=== PATIENT | female | born 1950 | race Asian ===

== ENCOUNTER 2017-09-22 06:35 | Inpatient (IN) | payer BC ==
[2017-09-22] MEDS: CEFAZOLIN 2 GM/50 ML (PMX) 50 ML IVPB (06:00)
[2017-09-22] MEDS: TRANEXAMIC ACID 1,000 MG in NS 100 ML PRE-OP X1 IVPB (06:00)
[2017-09-22] MEDS: TRANEXAMIC ACID 1,000 MG in NS 100 ML INTRA-OP X1 IVPB (06:00)
[2017-09-22] MEDS ORDERED: ROCURONIUM 50 MG INJ (07:00)
[2017-09-22] MEDS ORDERED: PROPOFOL 20 ML (08:34)
[2017-09-22] MEDS ORDERED: MIDAZOLAM 1 MG/ML 2 ML INJ (08:34)
[2017-09-22] MEDS ORDERED: ROPIVACAINE 0.5 % 30 ML VIAL (08:34)
[2017-09-22] MEDS ORDERED: METOCLOPRAMIDE 10 MG INJ (08:34)
[2017-09-22] MEDS ORDERED: ONDANSETRON 4 MG INJ (08:34)
[2017-09-22] MEDS ORDERED: LIDOCAINE 2% (SDV) 5 ML INJ (08:34)
[2017-09-22] MEDS ORDERED: BUPIVACAINE 0.75%/DEXT (SPINAL) 2 ML INJ (09:10)
[2017-09-22] MEDS ORDERED: CEFAZOLIN 1 GM INJ (09:12)
[2017-09-22] MEDS ORDERED: NALOXONE (0.4 MG/ML) INJ IV (10:00)
[2017-09-22] MEDS ORDERED: NA PHOSPHATE/BIPHOS 133 ML ENEMA PR (10:00)
[2017-09-22] MEDS ORDERED: BISACODYL 10 MG SUPP PR (10:00)
[2017-09-22] MEDS ORDERED: DIPHENHYDRAMINE 50 MG INJ IV ×2 (10:00→12:30)
[2017-09-22] MEDS ORDERED: BETHANECHOL 25 MG TAB PO (10:00)
[2017-09-22] MEDS ORDERED: oxyCODONE 5 MG TAB PO ×2 (10:00)
[2017-09-22] MEDS ORDERED: hydrALAzine 20 MG INJ (10:17)
[2017-09-22] MEDS ORDERED: MEPERIDINE 100 MG INJ (10:18)
[2017-09-22] MEDS: POLYMYXIN B 500000 UNIT INJ (11:32)
[2017-09-22] MEDS: BACITRACIN 50000 UNITS INJ (11:32)
[2017-09-22] MEDS: ONDANSETRON 4 MG INJ IV ×3 (12:27→21:23)
[2017-09-22] MEDS: ASPIRIN (EC) 325 MG TAB PO (12:27)
[2017-09-22] MEDS: CEFAZOLIN 1 GM/50 ML (PMX) 50 ML IVPB ×2 (12:27→17:29)
[2017-09-22] MEDS: DOCUSATE SODIUM 100 MG CAP PO (12:27)
[2017-09-22] MEDS ORDERED: HYDROmorphONE 1 MG/5 ML IV SYRINGE IV ×3 (12:30)
[2017-09-22] MEDS ORDERED: MIDAZOLAM 1 MG/ML 2 ML INJ IV (12:30)
[2017-09-22] MEDS ORDERED: OXYCODONE/ACETAMINOPHEN (5/325) TAB PO ×2 (12:30)
[2017-09-22] MEDS ORDERED: LABETALOL HCL 20MG INJ IV (12:30)
[2017-09-22] MEDS ORDERED: FENTAnyl 50 MCG/ML VIAL IV ×3 (12:30)
[2017-09-22] MEDS ORDERED: EPHEDrine SULFATE 50 MG/5 ML SYG IV (12:30)
[2017-09-22] MEDS ORDERED: ONDANSETRON 4 MG INJ IV (12:30)
[2017-09-22] MEDS ORDERED: MEPERIDINE 25 MG INJ IV (12:30)
[2017-09-22] MEDS ORDERED: hydrALAzine 20 MG INJ IV (12:30)
[2017-09-22] MEDS ORDERED: METOCLOPRAMIDE 10 MG INJ IV (12:30)
[2017-09-22] MEDS: LACTATED RINGER'S 1,000 ML IV* (12:50)
[2017-09-22] MEDS: SOD CHLORIDE 0.9% 1,000 ML IV ×2 (14:46→22:16)
[2017-09-22] MEDS: KETOROLAC 15 MG INJ IV (18:01)
[2017-09-22] MEDS: oxyCODONE 5 MG TAB PO (20:45)
[2017-09-22] MEDS: ATORVASTATIN 40 MG TAB PO (21:22)
[2017-09-22] MEDS: GABAPENTIN 100 MG CAP PO (21:22)
[2017-09-22] MEDS: CELECOXIB 100 MG CAP PO (21:33)
[2017-09-23] MEDS: CEFAZOLIN 1 GM/50 ML (PMX) 50 ML IVPB (02:01)
[2017-09-23] MEDS: KETOROLAC 15 MG INJ IV (02:07)
[2017-09-23] MEDS: SOD CHLORIDE 0.9% 1,000 ML IV ×2 (02:08→22:34)
[2017-09-23] MEDS: ONDANSETRON 4 MG INJ IV (04:00)
[2017-09-23 05:06] LABS: ADD MAN DIFF? NO; BASOPHILS % 0.2 % (0.0-2.0); EOSINOPHILS % 0.4 % (0.0-7.0); HEMATOCRIT 33.1 % (37.0-47.0); HEMOGLOBIN 10.8 g/dl (12.0-16.0); LYMPHOCYTES # 2.2 10^3/ul (0.8-2.9); LYMPHOCYTES % 24.4 % (15.0-51.0); MEAN CORPUSCULAR HEMOGLOBIN 28.9 pg (29.0-33.0); MEAN CORPUSCULAR HGB CONC 32.6 g/dl (32.0-37.0); MEAN CORPUSCULAR VOLUME 88.5 fl (82.0-101.0); MEAN PLATELET VOLUME 9.1 fl (7.4-10.4); MONOCYTE # 0.8 10^3/ul (0.3-0.9); MONOCYTES % 8.7 % (0.0-11.0); NEUTROPHIL # 5.9 10^3/ul (1.6-7.5); NEUTROPHILS % 65.7 % (39.0-77.0); PLATELET COUNT 263 10^3/UL (140-415); RED BLOOD COUNT 3.74 10^6/ul (4.20-5.40); RED CELL DISTRIBUTION WIDTH 13.8 % (11.5-14.5)
[2017-09-23 05:29] LABS: HEMOGLOBIN A1C 5.8 % (0-5.9)
[2017-09-23 05:36] LABS: CHOL/HDL RATIO 4.1 RATIO; CHOLESTEROL 111 mg/dl (100-200); HDL CHOLESTEROL 27 mg/dl (35-98); LDL CHOLESTEROL,CALCULATED 69 mg/dl; TRIGLYCERIDES 73 mg/dl (0-149)
[2017-09-23 05:36] LABS: URIC ACID 7.6 mg/dl (3.1-7.9)
[2017-09-23 05:47] LABS: ALANINE AMINOTRANSFERASE 28 IU/L (13-69); ALBUMIN 2.9 g/dl (3.3-4.9); ALKALINE PHOSPHATASE 56 IU/L (42-121); ASPARTATE AMINO TRANSFERASE 25 IU/L (15-46); BILIRUBIN,INDIRECT 0.4 mg/dl (0-1.1); BILIRUBIN,TOTAL 0.4 mg/dl (0.2-1.3); MAGNESIUM 1.9 mg/dl (1.7-2.5); PHOSPHORUS 3.3 mg/dl (2.5-4.9); TOTAL PROTEIN 6.4 g/dl (6.1-8.1)
[2017-09-23 05:48] LABS: ANION GAP 9 (8-16); BLOOD UREA NITROGEN 14 mg/dl (7-20); CALCIUM 8.1 mg/dl (8.4-10.2); CARBON DIOXIDE 29 mmol/L (21-31); CHLORIDE 106 mmol/L (97-110); CREATININE 0.75 mg/dl (0.44-1.00); GLUCOSE 105 mg/dl (70-220); POTASSIUM 3.7 mmol/L (3.5-5.1); SODIUM 140 mmol/L (135-144)
[2017-09-23] MEDS: ALLOPURINOL 100 MG TAB PO (09:00)
[2017-09-23] MEDS: ASPIRIN (EC) 325 MG TAB PO (09:02)
[2017-09-23] MEDS: DOCUSATE SODIUM 100 MG CAP PO ×2 (09:02→20:42)
[2017-09-23] MEDS: LISINOPRIL 10 MG TAB PO (09:02)
[2017-09-23] MEDS: FERROUS FUMARATE (SR) TAB PO ×2 (09:02→20:42)
[2017-09-23] MEDS: GABAPENTIN 100 MG CAP PO ×2 (09:03→20:42)
[2017-09-23] MEDS: CELECOXIB 100 MG CAP PO ×2 (09:03→20:42)
[2017-09-23] MEDS: AMLODIPINE 10 MG TAB PO (09:04)
[2017-09-23] MEDS: oxyCODONE 5 MG TAB PO (09:05)
[2017-09-23] MEDS: SENNA/DOCUSATE NA (8.6MG/50MG) TAB PO (18:01)
[2017-09-23] MEDS: ATORVASTATIN 40 MG TAB PO (20:42)
[2017-09-24 05:17] LABS: ADD MAN DIFF? NO
[2017-09-24] MEDS: MAGNESIUM HYDROXIDE 30ML CUP PO ×2 (05:23→09:05)
[2017-09-24] MEDS: PANTOPRAZOLE (EC) 40 MG TAB PO (05:23)
[2017-09-24 05:25] LABS: WHITE BLOOD COUNT 9.6 10^3/ul (4.8-10.8)
[2017-09-24 05:26] LABS: BASOPHIL # 0.1 10^3/ul (0.0-0.1); BASOPHILS % 0.5 % (0.0-2.0); EOSINOPHILS # 0.2 10^3/ul (0.0-0.5); EOSINOPHILS % 2.1 % (0.0-7.0); HEMATOCRIT 37.7 % (37.0-47.0); HEMOGLOBIN 12.1 g/dl (12.0-16.0); LYMPHOCYTES # 3.4 10^3/ul (0.8-2.9); LYMPHOCYTES % 35.8 % (15.0-51.0); MEAN CORPUSCULAR HEMOGLOBIN 28.6 pg (29.0-33.0); MEAN CORPUSCULAR HGB CONC 32.1 g/dl (32.0-37.0); MEAN CORPUSCULAR VOLUME 89.1 fl (82.0-101.0); MEAN PLATELET VOLUME 9.3 fl (7.4-10.4); MONOCYTE # 0.8 10^3/ul (0.3-0.9); MONOCYTES % 8.1 % (0.0-11.0); NEUTROPHIL # 5.1 10^3/ul (1.6-7.5); NEUTROPHILS % 53.1 % (39.0-77.0); PLATELET COUNT 296 10^3/UL (140-415); RED BLOOD COUNT 4.23 10^6/ul (4.20-5.40); RED CELL DISTRIBUTION WIDTH 13.9 % (11.5-14.5)
[2017-09-24 05:56] LABS: ANION GAP 11 (8-16); BLOOD UREA NITROGEN 14 mg/dl (7-20); CALCIUM 8.5 mg/dl (8.4-10.2); CARBON DIOXIDE 31 mmol/L (21-31); CHLORIDE 106 mmol/L (97-110); CREATININE 0.86 mg/dl (0.44-1.00); GLUCOSE 110 mg/dl (70-220); SODIUM 144 mmol/L (135-144)
[2017-09-24] MEDS: CELECOXIB 100 MG CAP PO (09:01)
[2017-09-24] MEDS: FERROUS FUMARATE (SR) TAB PO (09:01)
[2017-09-24] MEDS: ASPIRIN (EC) 325 MG TAB PO (09:01)
[2017-09-24] MEDS: ALLOPURINOL 100 MG TAB PO (09:01)
[2017-09-24] MEDS: LISINOPRIL 10 MG TAB PO (09:02)
[2017-09-24] MEDS: GABAPENTIN 100 MG CAP PO (09:02)
[2017-09-24] MEDS: AMLODIPINE 10 MG TAB PO (09:02)
[2017-09-24] MEDS: DOCUSATE SODIUM 100 MG CAP PO (09:04)
[2017-09-24] MEDS: SOD CHLORIDE 0.9% 1,000 ML IV (11:46)
== END 2017-09-24 14:00 | disposition home health service (06) | DRG 470 ==
LOC: REC 06:35 → MS1 12:47
PROVIDERS: Orthopaedic Surgery
PROC: 0SRD06A Replacement of Left Knee Joint with Oxidized Zirconium on Polyethylene Synthetic Substitute, Uncemented, Open Approach (ICD-10-PCS; principal; 2017-09-22 08:30)
DX: M17.12 Unilateral primary osteoarthritis, left knee (principal); I10 Essential (primary) hypertension; E78.5 Hyperlipidemia, unspecified; Z86.73 Personal history of transient ischemic attack (TIA), and cerebral infarction without residual deficits
CPT/HCPCS: 73560; 80048; 80061; 80076; 83036; 83735; 84100; 84560; 85025; 86850; 86900; 86901; 87081; 88304; 88311; 97110; 97116; 97163; 97165; 97530; 97535